=== PATIENT | male | born 1950 ===

== ENCOUNTER → 2017-12-21 | Outpatient (CLI) | payer BC | LOC: FIMAGING 12:59 | PROVIDERS: ATTEND Physician Assistant Surgical | DX: Z13.820 Encounter for screening for osteoporosis (principal); M85.89 Other specified disorders of bone density and structure, multiple sites ==

== ENCOUNTER 2018-03-17 05:38 | Inpatient (IN) | payer OTHER, MEDICARE ==
[2018-03-17] MEDS ORDERED: ceFAZolin 2 GM/DEXTROSE 100 ML IV ONE (05:54)
[2018-03-17] MEDS ORDERED: GABAPENTIN 300 MG CAP PO ONE (05:54)
[2018-03-17] MEDS ORDERED: morphINE SR 15 MG TAB PO ONE (05:54)
[2018-03-17] MEDS ORDERED: morphINE PF 0.2 MG in SYRINGE INTRATHECAL 1 SYR IT ONE (05:54)
[2018-03-17] MEDS ORDERED: ACETAMINOPHEN 500 MG TAB PO ONE (05:54)
[2018-03-17] MEDS ORDERED: LR 1,000 ML IV ONE (05:57)
[2018-03-17] MEDS ORDERED: THROMBIN (BOVINE) 20,000 UNIT VIAL TP ONE (06:52)
[2018-03-17] MEDS ORDERED: CHLORHEXIDINE GLUC HIBICLENS 118 ML BTL TP ONE (06:52)
[2018-03-17] MEDS ORDERED: BUPIVACAINE/EPI 0.25% 30 ML SDV ONE (06:52)
[2018-03-17] MEDS ORDERED: BACITRACIN 50,000 UNITS/10 ML SYR IRR ONE (06:53)
--- NOTE | 2018-03-17 07:13 | PDANEPAE ---
ANE Past Medical History - Cardiovascular History Hx Hypertension: Yes Hx Arrhythmias: No Hx Chest Pain: No Hx Coronary Artery / Peripheral Vascular Disease: No Hx CHF / Valvular Disease: No Hx Palpitations: No - Pulmonary History Hx COPD: No Hx Asthma/Reactive Airway Disease: Yes Hx Recent Upper Respiratory Infection: No Hx Oxygen in Use at Home: No Hx Sleep Apnea: No Sleep Apnea Screening Result - Last Documented: Positive Pulmonary History Comment: had asthma as a young child, now as an adult is occasionally bothered by it with cold weather and hay fever. MELODIE Triggers - Neurologic History Hx Cerebrovascular Accident: No Hx Seizures: No Hx Dementia: No Neurologic History Comment: lumbar stenosis - pain to buttocks, L>R, intermittent numbness and tingling in legs and feet - Endocrine History Hx Diabetes: No - Renal History Hx Renal Disorders: No - Liver History Hx Hepatic Disorders: No - Neurological & Psychiatric Hx Hx Neurological and Psychiatric Disorders: Yes Neurological / Psychiatric History Comment: anxiety - Cancer History Hx Cancer: No - Congenital Disorder History Hx Congenital Disorders: No - GI History Hx Gastrointestinal Disorders: No - Other Health History Other Health History: wears glasses - Chronic Pain History Chronic Pain: Yes - Surgical History Prior Surgeries: right shoulder surgery ANE Review of Systems Review of Systems: - Exercise capacity METS (RN): 4 METS ANE Patient History - Allergies Allergies/Adverse Reactions: No Known Allergies Allergy (Verified 03/04/18 10:05) - Home Medications Home Medications: Albuterol [Proventil Inhaler HFA (*)] 1 - 2 puffs IH DAILY PRN 03/04/18 [Last Taken 02/15/18] Citalopram [CeleXA] 20 mg PO DAILY 03/04/18 [Last Taken 03/17/18] Ibuprofen [Motrin (*)] 200 mg PO DAILY PRN 03/04/18 [Last Taken 03/10/18] Lisinopril [Zestril 20 mg (*)] 20 mg PO HS 03/04/18 [Last Taken 03/16/18] Multivitamins [Multivitamin (*)] 1 each PO DAILY 03/04/18 [Last Taken 03/10/18] Rosuvastatin Calcium [Crestor 20mg (*)] 20 mg PO HS 03/04/18 [Last Taken ] Metoprolol Succinate 25 mg PO DAILY 03/17/18 [Last Taken 03/17/18] - NPO status NPO Since - Liquids (Date): 03/17/18 NPO Since - Liquids (Time): 05:00 NPO Since - Solids (Date): 03/16/18 NPO Since - Solids (Time): 21:00 - Smoking Hx Smoking Status: Never smoked - Family Anes Hx Family Hx Anesthesia Complications: none ANE Labs/Vital Signs - Vital Signs Blood Pressure: 123/94 Heart Rate: 67 Respiratory Rate: 16 O2 Sat (%): 92 Height: 185.42 cm Weight: 104.326 kg ANE Physical Exam - Airway Mallampati Score: Class 2 - ASA Status ASA Status: II ANE Anesthesia Plan Anesthesia Plan: general endotracheal anesthesia
[2018-03-17] MEDS ORDERED: MIDAZOLAM 2 MG/2 ML VIAL ONE (07:49)
[2018-03-17] MEDS ORDERED: PROPOFOL/EMULSION 500 MG/50 ML BOTTLE IV ONE (07:49)
[2018-03-17] MEDS ORDERED: fentaNYL 100 MCG/2 ML INJ ONE (07:49)
[2018-03-17] MEDS ORDERED: PROPOFOL 200 MG/20 ML VIAL ONE (07:49)
[2018-03-17] MEDS ORDERED: ONDANSETRON 4 MG/2 ML VIAL ONE (07:54)
[2018-03-17] MEDS ORDERED: METOCLOPRAMIDE 10 MG/2 ML VIAL ONE (07:54)
[2018-03-17] MEDS ORDERED: ROCURONIUM 50 MG/5 ML VIAL ONE ×2 (07:54→11:33)
--- NOTE | 2018-03-17 08:41 | PDHPUP ---
History & Physical Update H&P update statement: This history and physical update is based on an assessment of the patient which was completed after admission or registration (within 24 hours), but prior to the surgery/procedure. H&P update: H&P reviewed & patient examined, no change in patient's condition since H&P completed (Consent signed and site marked. All questions answered.)
[2018-03-17] MEDS ORDERED: PHENYLEPHRINE HCL 100 MCG/ML SYR ONE (10:45)
[2018-03-17] MEDS ORDERED: PROMETHAZINE HCL 25 MG/ML INJ IVP PRN (11:58)
[2018-03-17] MEDS ORDERED: NALOXONE HCL 0.4 MG/ML INJ IVP PRN (11:58)
[2018-03-17] MEDS ORDERED: PHENYLEPHRINE HCL 100 MCG/ML SYR IVP PRN (11:58)
[2018-03-17] MEDS ORDERED: fentaNYL 100 MCG/2 ML INJ IVP PRN (11:58)
[2018-03-17] MEDS ORDERED: LR 500 ML IV PRN (11:58)
[2018-03-17] MEDS ORDERED: ALBUTEROL 3 ML DEYVIAL IH PRN (11:58)
[2018-03-17] MEDS ORDERED: ONDANSETRON 4 MG/2 ML VIAL IVP PRN ×2 (11:58→12:02)
--- NOTE | 2018-03-17 11:59 | POSTANESTH ---
Post Anesthetic Evaluation Cardiovascular Status: Similar to Pre-Op Cond Respiratory Status: Normal, Stable Level of Consciousness/Mental Status: Can Participate in Eval Pain Control: Adequate, Prn Tx Ordered Nausea/Vomiting Control: Adequate, Prn Tx Ordered Complications Possibly Related to Anesthesia: None Noted
[2018-03-17] MEDS ORDERED: ALBUTEROL 60 PUFFS/8 GM MDI IH PRN (12:01)
[2018-03-17] MEDS ORDERED: POLYETHYLENE GLYCOL 3350 17 GM PKT PO PRN (12:02)
[2018-03-17] MEDS ORDERED: ONDANSETRON DISINTEGRATING 4 MG TAB PO PRN (12:02)
[2018-03-17] MEDS ORDERED: MAGNESIUM HYDROXIDE 30 ML UDCUP PO PRN (12:02)
[2018-03-17] MEDS ORDERED: diphenhydrAMINE 25 MG CAP PO PRN (12:02)
[2018-03-17] MEDS ORDERED: BISACODYL 10 MG SUPP PR PRN (12:02)
[2018-03-17] MEDS ORDERED: LACTULOSE 20 GM/30 ML UDCUP PO PRN (12:02)
--- NOTE | 2018-03-17 12:09 | POSTOPPROG ---
Post Op Note Date of Operation: 03/17/18 Surgeon: Konstantin Rondon Anesthesia: GET(General Endotracheal) Pre-op Diagnosis: lumbar stenosis Post-op Diagnosis: Lumbar stenosis Indication: Lumbar stenosis Procedure: L4/5 laminectomy/TLIF/PSF Inf/Abcess present in the surg proc area at time of surgery?: No EBL: 50-100 PA Addendum - Addendum .: S: low back pain O: NAD A&Ox3 MAEx 5/5 and equal in BUE and BLE. A/P 67y/o male s/p L4/5 laminectomy/TLIF/PSF -Optimize pain management -Advance diet as tolerated -PT/OT -JUAN drain x1 -Post op xrays pending -DVT prophx: TEDs, SCDs, Lovenox okay POD1 -Please notify NS with any change in neuro/motor exam
[2018-03-17] MEDS ORDERED: NS 1,000 ML IV SCH (12:15)
--- NOTE | 2018-03-17 13:59 | GOP ---
DATE OF OPERATION: 03/17/2018 SURGEON: Konstantin Rondon MD [employer] APPRENTICE: Maria Elena Logan PA-C. ANESTHESIA: General. PREOPERATIVE DIAGNOSIS: 1. L4-L5 grade 1 spondylolisthesis with severe spinal stenosis. 2. Lower extremity radiculopathy. 3. Treatment refractory to nonoperative intervention. POSTOPERATIVE DIAGNOSIS: 1. L4-L5 grade 1 spondylolisthesis with severe spinal stenosis. 2. Lower extremity radiculopathy. 3. Treatment refractory to nonoperative intervention. PROCEDURE PERFORMED: 1. Posterior arthrodesis with approach to L4-L5. 2. Posterolateral fusion with bilateral pedicle screw placement at L4 and L5 from the Bswiftra 4.75 system. 3. Decompressive laminectomy with bilateral medial facetectomies, L4-L5. 4. Left-sided L4-5 facetectomy and transforaminal lumbar interbody fusion with a 7 x 28 mm titanium PEEK elevate cage filled with morselized autograft and allograft. 5. Posterolateral fusion on the right with morselized autograft and allograft. 6. Use of intraoperative 3D Stealth navigation. 7. Use of intraoperative fluoroscopy, less than 1 hour physician time. 8. Use of neuromonitoring. 9. Use of the operative microscope. 10. Injection of preservative-free intrathecal narcotics. FINDINGS: per imaging SPECIMENS: None. ESTIMATED BLOOD LOSS: 200 mL. INDICATIONS: The patient is a very pleasant gentleman who unfortunately suffers from low back pain with lower extremity radiculopathy. Imaging demonstrates severe spinal stenosis at L4-5 with a grade 1 spondylolisthesis. After discussion of the risks, benefits, and treatment alternatives, after failing nonoperative intervention, we decided to proceed with surgery as described above. DESCRIPTION OF PROCEDURE: The patient was brought to the operating theater and underwent general endotracheal anesthesia without complications. Venodynes, AGUSTIN hose and the appropriate lines were placed by Anesthesia. He was flipped prone onto the David table and all bony processes inspected and padded. Using lateral fluoroscopy and a spinal needle, we picked our entry point to the L4-5 level. This was marked in the midline. The incision was infiltrated with Marcaine with epinephrine. The incision was taken down with the scalpel blade and using monopolar, taken down the midline through the lumbodorsal fascia and a subperiosteal dissection carried to the transverse process of L4 and L5. Care was taken to preserve the bilateral L3-4 facet joint. Deep retractors were placed to maintain exposure and we confirmed our level using lateral fluoroscopy. We attached the 3D Stealth clamp to the spinous process at L5 and completed a 3D Stealth navigation spin. Using 3D navigation we then placed the boat pilot holes for the bilateral pedicle screws at L4 and L5. All holes were manually palpated with no evidence of any cortical breaches. We then tapped and placed 6.5 x 50 mm screws bilaterally at L4, 6.5 x 45 mm screws bilaterally in L5 from [employer] Solera 4.75 system. Another 3D Stealth navigation spin demonstrated good placement of the hardware. At this point, the microscope was brought into the field to assist with microscopic dissection and to maintain illumination and magnification. Using a combination of the bur tip on the drill bit, Kerrison punches and Leksell rongeur, we completed a decompressive laminectomy with bilateral medial facetectomies, L4-L5. We resected the facet joint on the left side at L4-5 and distracted the interspace and completed a left-sided L4-5 diskectomy. We prepared the cartilaginous endplates and measured the interbody space. We then placed a 7 x 28 mm titanium PEEK elevate cage filled with morselized autograft and allograft anteriorly and toward the midline. We packed additional morcellized autograft in the disk space for the interbody fusion. We let down the distraction and decorticated the bone on the right side between L4-5. We placed 2 lordotic rods into the heads of the screws between L4-L5 and secured them down with cap screws which were tightened per the [facility] setting. We placed morselized autograft and allograft on the right side between L4-5 for the posterolateral fusion. We injected preservative-free intrathecal narcotics. A drain was left in the subfascial space. The wound then closed in multiple layers including Vicryl sutures in the deep layers and Dermabond to the skin. The patient's wounds were dressed sterilely. He was then flipped supine onto the transfer cart, where he was awakened, extubated, and taken to the recovery room in stable condition. There were no complications and no noted changes on neuromonitoring throughout the procedure. COMPLICATIONS: None. /[id number]/MODL MTDD
--- NOTE | 2018-03-17 14:05 | PDMN ---
Medical Necessity Medical necessity: MCG: S820 lumbar fusion INPT only: op: L4/5 lsmi, TLIF / PSF
[2018-03-17] MEDS: ACETAMINOPHEN 500 MG TAB PO SCH ×2 (15:00→21:12)
[2018-03-17] MEDS: ceFAZolin 2 GM/DEXTROSE 100 ML IV SCH ×2 (15:02→21:13)
[2018-03-17] MEDS: ROSUVASTATIN CALCIUM 20 MG TAB PO SCH (21:11)
[2018-03-17] MEDS: FAMOTIDINE 20 MG TAB PO SCH (21:11)
[2018-03-17] MEDS: LISINOPRIL 20 MG TAB PO SCH (21:11)
[2018-03-17] MEDS: SENNOSIDES/DOCUSATE SODIUM TAB PO SCH (21:12)
[2018-03-18] MEDS: ACETAMINOPHEN 500 MG TAB PO SCH ×3 (05:57→21:29)
[2018-03-18] MEDS: METOPROLOL SUCCINATE XR 25 MG TAB PO SCH (07:54)
[2018-03-18] MEDS: MULTIVITAMINS 1 EACH TAB PO SCH (07:54)
[2018-03-18] MEDS: METHOCARBAMOL 750 MG TAB PO PRN (07:55)
[2018-03-18] MEDS: SENNOSIDES/DOCUSATE SODIUM TAB PO SCH ×2 (07:55→21:29)
[2018-03-18] MEDS: CITALOPRAM 20 MG TAB PO SCH (07:55)
[2018-03-18] MEDS: FAMOTIDINE 20 MG TAB PO SCH ×2 (07:55→21:29)
--- NOTE | 2018-03-18 08:30 | NEUSURGPN ---
Assessment/Plan: A/P 67y/o male s/p L4/5 laminectomy/TLIF/PSF POD1 -Optimize pain management, discussed muscle relaxers this am, as low back pain increased since yesterday -PT/OT -JUAN drain x1, continue today -Post op xrays pending -DVT prophx: TEDs, SCDs, Lovenox -Patient was seen by Dr. Rondon and myself. -Please notify NS with any change in neuro/motor exam Subjective: low back pain, slightly increased from yesterday, Getting ready to ambulate with PT Objective: NAD A&Ox3 MAEx 5/5 and equal in BUE and BLE. JUAN serosanguineous Incisional dressing c/d/i Catheter Insertion Date: 03/17/18 - Physician Discussed Patient with : Alcon Patient Seen by : [facility] Physical Exam - Vitals, I&O, Labs I and O 03/17/18 03/18/18 03/19/18 05:59 05:59 05:59 Intake Total 2406 500 Output Total 2880 60 Balance -474 440 Weight 104.326 kg Intake: Oral (ml) 500 IV Intake (ml) 1300 IV Infused (ml) 1106 Ns 1,000 ml @ 75 mls/hr 876 IV CONT WILDER Rx#: [id number] ceFAZolin 2 GM/DEXTROSE 230 100 ml @ 200 mls/hr IV Q8HRS WILDER Rx#:[id number] Output: Urine (ml) 1350 Catheter 1350 Estimated Blood Loss (ml) 200 Emesis (ml) 1000 JUAN Drain Output (ml) 330 60 #1 Left Posterior Back 330 60 David Bailey Other: Number of Voids Catheter 1 Number of Emesis 2 Occurrences Vital Signs Temp Pulse Resp BP Pulse Ox 36.4 C 77 16 118/72 92 03/18/18 07:54 03/18/18 07:54 03/18/18 04:00 03/18/18 07:54 03/18/18 04:00 ICD10 Worksheet Patient Problems: Problems Problem Status Onset Lumbar stenosis Acute - ICD10 Problem Qualifiers (1) Lumbar stenosis
[2018-03-18] MEDS: oxyCODONE IR 5 MG TAB PO PRN ×2 (11:50→19:27)
--- NOTE | 2018-03-18 12:10 | ASMTCMCOM ---
CM Note CM Note Notes: Pt had surgery for lumbar stenosis. PT/OT rec home. Anticipate pt will d/c when medically stable, no CM d/c needs identified. CM available for changes/needs. D/c: Independent Date Signed: 03/18/2018 12:09 PM Electronically Signed By:KATIUSKA Gardner
[2018-03-18] MEDS: ENOXAPARIN 40 MG/0.4 ML SYR SC SCH (14:54)
[2018-03-18] MEDS: LISINOPRIL 20 MG TAB PO SCH (21:29)
[2018-03-18] MEDS: ROSUVASTATIN CALCIUM 20 MG TAB PO SCH (21:30)
[2018-03-19] MEDS: oxyCODONE IR 5 MG TAB PO PRN ×4 (04:35→14:45)
[2018-03-19] MEDS: ACETAMINOPHEN 500 MG TAB PO SCH ×2 (05:46→14:56)
[2018-03-19] MEDS: METOPROLOL SUCCINATE XR 25 MG TAB PO SCH (08:20)
[2018-03-19] MEDS: SENNOSIDES/DOCUSATE SODIUM TAB PO SCH (08:20)
[2018-03-19] MEDS: MULTIVITAMINS 1 EACH TAB PO SCH (08:20)
[2018-03-19] MEDS: METHOCARBAMOL 750 MG TAB PO PRN ×2 (08:24→12:43)
[2018-03-19] MEDS: FAMOTIDINE 20 MG TAB PO SCH (08:24)
[2018-03-19] MEDS: CITALOPRAM 20 MG TAB PO SCH (08:24)
[2018-03-19] MEDS: ENOXAPARIN 40 MG/0.4 ML SYR SC SCH (08:25)
[2018-03-19 08:29] VITALS: BP 135/90
--- NOTE | 2018-03-19 11:14 | NEUSURGPN ---
Date of Surgery: 03/17/18 Post Op Day: 2 Assessment/Plan: A/P 67y/o male s/p L4/5 laminectomy/TLIF/PSF POD2 -Optimize pain management, discussed plan for discharg -PT/OT -JUAN drain x1, continue until discharge later today -Post op xrays stable -DVT prophx: TEDs, SCDs, Lovenox -dressing change before discharge. -Please notify NS with any change in neuro/motor exam -dispo-hopefully later today dw dr. Rondon Subjective: up in chair. Leg pain much better, slept through night and now a little behind on back pain. Objective: VSS NAD AAOx4 PEARLA MAEx4, /= SILT Incision CDI, Dressed. Catheter Insertion Date: 03/17/18 - Physician Discussed Patient with : [facility] Physical Exam - Vitals, I&O, Labs I and O 03/18/18 03/19/18 03/20/18 05:59 05:59 05:59 Intake Total 2406 900 Output Total 2880 540 Balance -474 360 Weight 104.326 kg Intake: Oral (ml) 900 IV Intake (ml) 1300 IV Infused (ml) 1106 Ns 1,000 ml @ 75 mls/hr 876 IV CONT WILDER Rx#: [id number] ceFAZolin 2 GM/DEXTROSE 230 100 ml @ 200 mls/hr IV Q8HRS WILDER Rx#:[id number] Output: Urine (ml) 1350 300 Catheter 1350 Urinal 300 Estimated Blood Loss (ml) 200 Emesis (ml) 1000 JUAN Drain Output (ml) 330 240 #1 Left Posterior Back 330 240 David Bailey Other: Intake Quantity Yes Sufficient Number of Voids Catheter 1 Toilet 2 Urinal 1 Number of Emesis 2 Occurrences Vital Signs Temp Pulse Resp BP Pulse Ox 36.5 C 61 17 135/90 H 93 03/19/18 08:29 03/19/18 08:29 03/19/18 08:29 03/19/18 08:29 03/19/18 08:29 ICD10 Worksheet Patient Problems: Problems Problem Status Onset Lumbar stenosis Acute
== END 2018-03-19 15:34 | disposition home or self-care (01) | DRG 455 ==
LOC: F3N 05:38
PROVIDERS: ADMIT Neurological Surgery; ATTEND Neurological Surgery
DX: M43.16 Spondylolisthesis, lumbar region (principal); M48.062 Spinal stenosis, lumbar region with neurogenic claudication; M51.16 Intervertebral disc disorders with radiculopathy, lumbar region; I10 Essential (primary) hypertension; J45.909 Unspecified asthma, uncomplicated; G47.33 Obstructive sleep apnea (adult) (pediatric); Z23 Encounter for immunization
CPT/HCPCS: 97116-GP; 97161-GP; 97165-GO; 97535-GO; C1713; G0008; G8978-GP-CJ; G8979-GP-CI; G8980-GP-CI; G8987-GO-CI; G8988-GO-CI; G8989-GO-CI; J0690; J1650; J2250; J2274; J2370; J2405; J2704; J2765; J3010

== ENCOUNTER → 2018-05-06 | Outpatient (CLI) | payer OTHER | LOC: FIMAGING 11:18 | PROVIDERS: ATTEND Physician Assistant | DX: Z98.1 Arthrodesis status (principal) ==

== ENCOUNTER → 2018-06-15 | Outpatient (CLI) | payer OTHER | LOC: FIMAGING 11:06 | PROVIDERS: ATTEND Physician Assistant | DX: Z98.1 Arthrodesis status (principal) ==

== ENCOUNTER → 2018-09-30 | Outpatient (CLI) | payer OTHER, MEDICARE | LOC: FIMAGING 10:41 ==